=== PATIENT | female | born 1990 | race African-American/Black ===

== ENCOUNTER 2016-12-28 06:39 | Emergency (ER) | payer OTHER ==
[~2016-12-28] VITALS: Ht 172.7 cm; Wt 157.4 kg
[2016-12-28 06:46] VITALS: BP 169/94
--- NOTE | 2016-12-28 07:59 | PHYS DOC ---
Past Medical History Past Medical History: Other Additional Past Medical Histor: PCOS Past Surgical History: No Surgical History Alcohol Use: Rarely Drug Use: None Adult General Chief Complaint Chief Complaint: EARACHE/EAR PAIN HPI HPI Patient is a 26 year old female who presents with bilateral ear pain for several days. Pt states she has chronic ear problems, multiple external infections in the past and told to clean her ears after each time she showers. Pt denies fevers, headaches. Review of Systems Review of Systems Constitutional: Denies fever or chills [] Eyes: Denies change in visual acuity, redness, or eye pain [] HENT: Denies nasal congestion or sore throat [] Respiratory: Denies cough or shortness of breath [] Cardiovascular: denies chest pain GI: Denies abdominal pain, nausea, vomiting, bloody stools or diarrhea [] : Denies dysuria or hematuria [] Musculoskeletal: Denies back pain or joint pain [] Integument: Denies rash or skin lesions [] Neurologic: Denies headache, focal weakness or sensory changes [] Current Medications Current Medications Current Medications Medications (Trade) Dose Ordered Sig/Kd Start Time Stop Time Status Last Admin Dose Admin Ciprofloxacin (Cipro) 500 mg 1X ONCE 12/28/16 08:00 12/28/16 08:01 DC 12/28/16 08:02 500 MG Allergies Allergies Allergies Coded Allergies Type Severity Reaction Last Updated Verified No Known Drug Allergies 12/28/16 No Physical Exam Physical Exam Constitutional: Well developed, well nourished, no acute distress, non-toxic appearance. [] HENT: Normocephalic, atraumatic, bilateral tragus ttp, bilateral ear canals narrow, R>L, with thick which discharge. No mastoid ttp bilaterally Eyes: PERRLA, EOMI, conjunctiva normal, no discharge. [] Neck: Normal range of motion, no tenderness, supple, no stridor. [] Cardiovascular:Heart rate regular with regular rhythm Lungs & Thorax: No respiratory distress Neurologic: Alert and oriented X 3, normal motor function, normal sensory function, no focal deficits noted. [] Psychologic: Affect normal, judgement normal, mood normal. [] Current Patient Data Vital Signs Vital Signs Date Time Temp Pulse Resp B/P Pulse Ox O2 Delivery O2 Flow Rate FiO2 12/28/16 06:46 99.2 117 18 100 Room Air 99.2 EKG EKG [] Radiology/Procedures Radiology/Procedures [] Course & Med Decision Making Course & Med Decision Making Pertinent Labs and Imaging studies reviewed. (See chart for details) could not locate any ear ash in the hospital. Therefore, will treat for complicated otitis externa with cipro oral 500 po bid for 10 days. f/u with ENT [place] Disclaimer Dragon Disclaimer This electronic medical record was generated, in whole or in part, using a voice recognition dictation system. Departure Departure Disposition: HOME, SELF-CARE Condition: STABLE Referrals: NON,STAFF (PCP) Scripts Hydrocodone/Apap 5-325 ([place] 5-325 Tablet)1 Each Tablet1-2 Tab PO Q4-6HRS PRN PAIN #12 TAB Prov:WILFREDO GIBSON MD 12/28/16 Ciprofloxacin Hcl 500 Mg Tablet1 Tab PO BID #19 TAB Prov:WILFREDO GIBSON MD 12/28/16 Ibuprofen 800 Mg [id number] Mg PO PRN TID PRN PAIN #20 TAB take with food or milk to avoid upsetting stomach Prov:WILFREDO GIBSON MD 12/28/16 WILFREDO GIBSON MD December 28, 2016 07:58
[2016-12-28] MEDS ORDERED: CIPROFLOXACIN HCL 250 MG TABLET. PO ONE (08:00)
[2016-12-28] MEDS ORDERED: IBUP-1060 PO (08:09)
[2016-12-28] MEDS ORDERED: CIPR500T PO (08:09)
[2016-12-28] MEDS ORDERED: HYDR-971 PO (08:09)
[2016-12-28] MEDS ORDERED: PSEU120T58 PO (23:31)
[2016-12-28] MEDS ORDERED: CIPR7.5D EACH EAR (23:31)
[2016-12-28] MEDS ORDERED: FLUT9.9S NS (23:31)
== END 2016-12-28 08:15 | disposition home or self-care (01) ==
LOC: ER 06:39
DX: H60.93 Unspecified otitis externa, bilateral (principal); E28.2 Polycystic ovarian syndrome
CPT/HCPCS: 99283

== ENCOUNTER 2016-12-28 22:34 | Emergency (ER) | payer OTHER ==
[2016-12-28 06:46] VITALS: BP 169/94
[~2016-12-28 22:34] MED LIST: CIPR500T PO; HYDR-971 PO; IBUP-1060 PO
[2016-12-28] MEDS ORDERED: FLUT9.9S NS (23:31)
[2016-12-28] MEDS ORDERED: PSEU120T58 PO (23:31)
[2016-12-28] MEDS ORDERED: CIPR7.5D EACH EAR (23:31)
== END 2016-12-28 22:51 | disposition left against medical advice (07) ==
LOC: ER 22:34
DX: H92.09 Otalgia, unspecified ear (principal)

== ENCOUNTER 2016-12-28 22:55 | Emergency (ER) | payer OTHER ==
[~2016-12-28] VITALS: Ht 172.7 cm; Wt 156.5 kg
[2016-12-28 23:02] VITALS: BP 168/88
--- NOTE | 2016-12-28 23:21 | PHYS DOC ---
Past Medical History Past Medical History: Other Additional Past Medical Histor: PCOS Past Surgical History: No Surgical History Alcohol Use: Rarely Drug Use: None Adult General Chief Complaint Chief Complaint: EARACHE/EAR PAIN HPI HPI Patient is a 26 year old female who presents with bilateral ear pain that has been going on for couple days. Patient states she was seen in the ED earilier this morning and was diagnosed with an ear infection and discharged with hydrocodone and Cipro PO. Patient states she has not had any pain relief. Patient denies any fever. She states she has history of chronic ear problems and has been told she needed to clean ears often. She is also complaining of nasal congestion which is chronic. Review of Systems Review of Systems Constitutional: Denies fever or chills [] Eyes: Denies change in visual acuity, redness, or eye pain [] HENT: ear pain Respiratory: Denies cough or shortness of breath [] Cardiovascular: No additional information not addressed in HPI [] Musculoskeletal: Denies back pain or joint pain [] Integument: Denies rash or skin lesions [] Neurologic: Denies headache, focal weakness or sensory changes [] Endocrine: Denies polyuria or polydipsia [] Allergies Allergies Allergies Coded Allergies Type Severity Reaction Last Updated Verified No Known Drug Allergies 12/28/16 No Physical Exam Physical Exam Constitutional: Well developed, well nourished, no acute distress, non-toxic appearance. [] HENT: Normocephalic, atraumatic, bilateral external ears normal, oropharynx moist, no oral exudates Bilateral ear canals have moderate amount of white drainage. Both ear canals are normal. Right worse than left. Both tragus are painful on exam. No mastoid tenderness. Patient is congested nasally. Eyes: PERRLA, EOMI, conjunctiva normal, no discharge. [] Neck: Normal range of motion, no tenderness, supple, no stridor. [] Cardiovascular:Heart rate regular rhythm, no murmur [] Lungs & Thorax: Bilateral breath sounds clear to auscultation [] Skin: Warm, dry, no erythema, no rash. [] Extremities: No tenderness, no cyanosis, no clubbing, ROM intact, no edema. [] Neurologic: Alert and oriented X 3, normal motor function, normal sensory function, no focal deficits noted. [] Psychologic: Affect normal, judgement normal, mood normal. [] Current Patient Data Vital Signs Vital Signs Date Time Temp Pulse Resp B/P Pulse Ox O2 Delivery O2 Flow Rate FiO2 12/28/16 23:02 99.2 112 22 97 Room Air 99.2 EKG EKG [] Radiology/Procedures Radiology/Procedures [] Course & Med Decision Making Course & Med Decision Making Pertinent Labs and Imaging studies reviewed. (See chart for details) Patient has otitis externa with nasal congestion. She was seen in the ED early this morning. She was given hydrocodone and Cipro by mouth. She states her symptoms have not improved. Encouraged her to continue taking the medications she received from the Ed earlier today. Gave her prescription for Ciprodex, Flonase and pseudoephedrine. Follow-up with her own PCP or ENT in one week. [place] Disclaimer [place] Disclaimer This electronic medical record was generated, in whole or in part, using a voice recognition dictation system. Departure Departure Impression: Primary Impression: Otitis externa of both ears Additional Impression: Upper respiratory infection Disposition: 01 HOME, SELF-CARE Condition: STABLE Referrals: NO PCP (PCP) follow up with your doctor or ENT in one week Patient Instructions: Otitis Externa, Upper Respiratory Infection, Adult, Easy- to-Read Additional Instructions: You were seen for ongoing ear infections and nasal congestion. Continue taking the medications you received earlier today. Use the eardrops as directed as well as the other medications prescribed today. Follow-up with the ENT specialist at [facility] in the next 7 days. Scripts Pseudoephedrine Hcl (Pseudoephedrine)120 Mg Tablet.er1 Tab PO BID #20 TAB Prov:LINDA DUNCAN [employer] 12/28/16 Fluticasone Propionate (Flonase Allergy Relief)9.9 Ml [place].susp2 Sprays NS DAILY #1 BOTTLE Prov:MUTUNGALINDA [employer] 12/28/16 Ciprofloxacin Hcl/Dexameth (Ciprodex Otic Suspension)7.5 Ml [place].susp4 Drop EACH EAR BID #7.5 ML Prov:MUTUNGA,LINDA [employer]INEER 12/28/16 Problem Qualifiers Primary Impression: Otitis externa of both ears Otitis externa type: unspecified type Chronicity: chronic Qualified Code: H60.63 - Unspecified chronic otitis externa, bilateral Additional Impression: Upper respiratory infection URI type: unspecified URI Qualified Code: J06.9 - Acute upper respiratory infection, unspecified LINDA DUNCAN [employer] ENGINEER December 28, 2016 23:20
[2016-12-28] MEDS ORDERED: PSEU120T58 PO (23:31)
[2016-12-28] MEDS ORDERED: CIPR7.5D EACH EAR (23:31)
[2016-12-28] MEDS ORDERED: FLUT9.9S NS (23:31)
[2016-12-28] MEDS ORDERED: ACETAMINOPHEN 325 MG TABLET. PO ONE (23:45)
[2016-12-28] MEDS ORDERED: MORPHINE SULFATE 10 MG/ML VIAL. IM ONE (23:45)
[2016-12-28] MEDS ORDERED: PSEUDOEPHEDRINE 30 MG TABLET. PO ONE (23:45)
== END 2016-12-28 23:41 | disposition home or self-care (01) ==
LOC: ER 22:55
DX: H60.93 Unspecified otitis externa, bilateral (principal); J06.9 Acute upper respiratory infection, unspecified; E28.2 Polycystic ovarian syndrome
CPT/HCPCS: 99283

== ENCOUNTER 2017-09-22 06:27 | Emergency (ER) | payer OTHER | END 2017-09-22 08:05 | disposition home or self-care (01) | LOC: ER 06:27 | DX: S93.402A Sprain of unspecified ligament of left ankle, initial encounter (principal); S80.02XA Contusion of left knee, initial encounter; E28.2 Polycystic ovarian syndrome; X58.XXXA Exposure to other specified factors, initial encounter; Y93.89 Activity, other specified; Y92.89 Other specified places as the place of occurrence of the external cause; Y99.8 Other external cause status | CPT/HCPCS: 73562; 73610; 99284 ==